=== PATIENT | female | born 1980 | race African-American/Black ===

== ENCOUNTER → 2019-04-22 | Outpatient (CLI) | payer OTHER ==
[~2019-04-22] MED LIST: ATIVAN1 MG PO; NOVOLOG100 UNIT/1 SQ; PROVENTIL IH; XANAX 0.5 MG0.5 M1 PO
== END ==
LOC: M.WC 10:00
DX: L03.314 Cellulitis of groin (principal); E10.36 Type 1 diabetes mellitus with diabetic cataract; E10.319 Type 1 diabetes mellitus with unspecified diabetic retinopathy without macular edema; I10 Essential (primary) hypertension; A49.01 Methicillin susceptible Staphylococcus aureus infection, unspecified site; J45.909 Unspecified asthma, uncomplicated; F41.9 Anxiety disorder, unspecified

== ENCOUNTER → 2019-04-29 | Outpatient (CLI) | payer OTHER | LOC: M.WC 04:48 | DX: L02.214 Cutaneous abscess of groin (principal); L03.314 Cellulitis of groin; E10.36 Type 1 diabetes mellitus with diabetic cataract; E10.319 Type 1 diabetes mellitus with unspecified diabetic retinopathy without macular edema; I10 Essential (primary) hypertension; J45.909 Unspecified asthma, uncomplicated; F17.200 Nicotine dependence, unspecified, uncomplicated; F41.9 Anxiety disorder, unspecified ==

== ENCOUNTER → 2019-05-03 | Outpatient (CLI) | payer OTHER | LOC: M.WC 02:05 | DX: L03.314 Cellulitis of groin (principal); L02.214 Cutaneous abscess of groin; E10.36 Type 1 diabetes mellitus with diabetic cataract; E10.319 Type 1 diabetes mellitus with unspecified diabetic retinopathy without macular edema; I10 Essential (primary) hypertension; J45.909 Unspecified asthma, uncomplicated; F17.200 Nicotine dependence, unspecified, uncomplicated ==

== ENCOUNTER → 2019-05-07 | Outpatient (CLI) | payer OTHER ==
[2019-05-07] VITALS (10 sets, daily range): BP systolic 116–172; BP diastolic 65–94
--- NOTE | 2019-05-07 16:57 | TEE ---
[place] [address] TRANSESOPHAGEAL ECHOCARDIOGRAM Name: ABHINAV CAVAZOS Room: [facility]#: [id number] Admission: 05/07/19 Attend Phys: Malachi Wade, Discharge: Date of : 82 Date of Service: 05/07/19 1656 Report #: [id number] THIS REPORT FOR: //name// APPROVED REPORT Study performed: 05/07/2019 14:18:15 EXAM: Transesophageal Echocardiogram Patient Location: Out-Patient Status: routine BSA: 1.95 HR: 110 bpm BP: 139/78 mmHg Rhythm: NSR Other Information Study Quality: Good Indications Rule out valvular vegetations Fever Echo Enhancing Agent Indication: Rule out Shunt Agent(s) / Amount(s) Used: Agitated Saline 20 cc Comments: 2 Bubble studies Procedure After obtaining informed consent, patient underwent transesophageal echo in the [employer]. Type of Sedation : Conscious Sedation Sedation was administered by Christine Hogan RN. Sedation start time: 1423 Case end Time: 1442. Sedation was achieved intravenously with: Versed (10) Fentanyl (75) Transesophageal probe was inserted and advanced into esophagus without difficulty by Malachi Morgan MD, FACC. Echo enhancement indication: R/O Septal defect. Echo enhancement agent administered: Agitated Saline The MIKE was performed without complications. Throughout the procedure, the blood pressure, pulse oximetry, cardiac rhythm, and rate were monitored. The patient tolerated the procedure without adverse effects. Recovery from conscious sedation was uneventful [place] [address] TRANSESOPHAGEAL ECHOCARDIOGRAM Name: ABHINAV CAVAZOS Room: [facility]#: [id number] Admission: 05/07/19 Attend Phys: Malachi Wade, Discharge: Date of : 82 Date of Service: 05/07/19 1656 Report #: [id number] Left Ventricle The left ventricle is normal size. There is normal LV segmental wall motion. There is normal left ventricular wall thickness. Left ventricular systolic function is normal. The left ventricular ejection fraction is within the normal range. LVEF is 55-60%. Right Ventricle The right ventricle is normal size. The right ventricular systolic function is normal. Atria Left atrium is mildly dilated. No thrombus is visualized in the left atrium or appendage. Interatrial septum is intact without evidence of ASD or PFO. The right atrium size is normal. Aortic Valve The aortic valve is normal in structure. No aortic regurgitation is present. There is no aortic valvular stenosis. Mitral Valve The mitral valve is normal in structure. There is no mitral valve regurgitation noted. No valvular vegetations noted No evidence of mitral valve stenosis. Tricuspid Valve The tricuspid valve is normal in structure. There is no tricuspid valve regurgitation noted. Pulmonic Valve The pulmonary valve is normal in structure. There is no pulmonic valvular regurgitation. Great Vessels The aortic root is normal in size. Pericardium There is no pericardial effusion. <Conclusion> LVEF is 55-60%. Left atrium is mildly dilated. No thrombus is visualized in the left atrium or appendage. Interatrial septum is intact without evidence [place] [address] TRANSESOPHAGEAL ECHOCARDIOGRAM Name: ABHINAV CAVAZOS Room: [facility].#: [id number] Admission: 05/07/19 Attend Phys: Malachi Wade, Discharge: Date of : 82 Date of Service: 05/07/191655 Report #: [id number] There is no mitral valve regurgitation noted. No valvular vegetations noted <ELECTRONICALLY SIGNED> By: Malachi Morgan MD, FACC 05/07/191655 55 55 Malachi Morgan MD, FACCharly /INF
== END | disposition home or self-care (01) ==
LOC: M.CL 13:24
DX: I72.8 Aneurysm of other specified arteries (principal); R06.09 Other forms of dyspnea; I05.8 Other rheumatic mitral valve diseases; Z88.2 Allergy status to sulfonamides; Z88.8 Allergy status to other drugs, medicaments and biological substances; Z79.4 Long term (current) use of insulin; Z79.899 Other long term (current) drug therapy; Z98.890 Other specified postprocedural states

== ENCOUNTER → 2019-05-07 | Outpatient (CLI) | payer OTHER | LOC: M.WC 10:00 | DX: L03.314 Cellulitis of groin (principal); E10.36 Type 1 diabetes mellitus with diabetic cataract; E10.319 Type 1 diabetes mellitus with unspecified diabetic retinopathy without macular edema; I10 Essential (primary) hypertension; J45.909 Unspecified asthma, uncomplicated; F17.200 Nicotine dependence, unspecified, uncomplicated; F41.9 Anxiety disorder, unspecified ==

== ENCOUNTER → 2019-05-10 | Outpatient (CLI) | payer OTHER | LOC: M.WC 05:09 | DX: L03.314 Cellulitis of groin (principal); E10.36 Type 1 diabetes mellitus with diabetic cataract; E10.319 Type 1 diabetes mellitus with unspecified diabetic retinopathy without macular edema; I10 Essential (primary) hypertension; J45.909 Unspecified asthma, uncomplicated; F17.200 Nicotine dependence, unspecified, uncomplicated ==

== ENCOUNTER → 2019-10-29 | Outpatient (CLI) | payer OTHER | LOC: M.RAD 10:54 | DX: R06.02 Shortness of breath (principal); R05 Cough ==

== ENCOUNTER → 2020-01-25 | Outpatient (CLI) | payer OTHER | LOC: M.MRI 01-20 16:30 | PROVIDERS: ATTEND Orthopaedic Surgery | DX: S63.591A Other specified sprain of right wrist, initial encounter (principal); M25.431 Effusion, right wrist; X58.XXXA Exposure to other specified factors, initial encounter; Y93.89 Activity, other specified; Y92.89 Other specified places as the place of occurrence of the external cause; Y99.8 Other external cause status ==

== ENCOUNTER → 2020-12-07 | Outpatient (CLI) | payer OTHER | LOC: M.WC 10:00 → M.RAD 10:10 | PROVIDERS: ATTEND Family Medicine | DX: E11.621 Type 2 diabetes mellitus with foot ulcer (principal); L97.512 Non-pressure chronic ulcer of other part of right foot with fat layer exposed; L84 Corns and callosities; E11.36 Type 2 diabetes mellitus with diabetic cataract; E11.319 Type 2 diabetes mellitus with unspecified diabetic retinopathy without macular edema; I10 Essential (primary) hypertension; J45.909 Unspecified asthma, uncomplicated; F17.200 Nicotine dependence, unspecified, uncomplicated; F41.9 Anxiety disorder, unspecified; Z98.49 Cataract extraction status, unspecified eye; Z90.710 Acquired absence of both cervix and uterus; Z79.4 Long term (current) use of insulin ==

== ENCOUNTER → 2020-12-14 | Outpatient (CLI) | payer OTHER | LOC: M.WC 09:57 | PROVIDERS: ATTEND Family Medicine | DX: E10.621 Type 1 diabetes mellitus with foot ulcer (principal); L97.512 Non-pressure chronic ulcer of other part of right foot with fat layer exposed; L84 Corns and callosities; J45.909 Unspecified asthma, uncomplicated; I10 Essential (primary) hypertension; E10.36 Type 1 diabetes mellitus with diabetic cataract; E10.319 Type 1 diabetes mellitus with unspecified diabetic retinopathy without macular edema; F41.9 Anxiety disorder, unspecified; F17.200 Nicotine dependence, unspecified, uncomplicated; Z86.14 Personal history of Methicillin resistant Staphylococcus aureus infection; Z90.722 Acquired absence of ovaries, bilateral; Z79.899 Other long term (current) drug therapy ==

== ENCOUNTER → 2020-12-21 | Outpatient (CLI) | payer OTHER | LOC: M.WC 10:00 | PROVIDERS: ATTEND Family Medicine | DX: E10.621 Type 1 diabetes mellitus with foot ulcer (principal); L97.512 Non-pressure chronic ulcer of other part of right foot with fat layer exposed; L84 Corns and callosities; J45.909 Unspecified asthma, uncomplicated; I10 Essential (primary) hypertension; E10.36 Type 1 diabetes mellitus with diabetic cataract; E10.319 Type 1 diabetes mellitus with unspecified diabetic retinopathy without macular edema; F41.9 Anxiety disorder, unspecified; F17.200 Nicotine dependence, unspecified, uncomplicated; Z86.14 Personal history of Methicillin resistant Staphylococcus aureus infection; Z90.722 Acquired absence of ovaries, bilateral ==

== ENCOUNTER → 2021-01-12 | Outpatient (CLI) | payer OTHER | LOC: M.WC 10:00 | PROVIDERS: ATTEND Family Medicine | DX: E10.621 Type 1 diabetes mellitus with foot ulcer (principal); L97.512 Non-pressure chronic ulcer of other part of right foot with fat layer exposed; L84 Corns and callosities; I10 Essential (primary) hypertension; E10.36 Type 1 diabetes mellitus with diabetic cataract; E10.319 Type 1 diabetes mellitus with unspecified diabetic retinopathy without macular edema; F41.9 Anxiety disorder, unspecified; F17.200 Nicotine dependence, unspecified, uncomplicated; J45.909 Unspecified asthma, uncomplicated; Z86.14 Personal history of Methicillin resistant Staphylococcus aureus infection; Z90.722 Acquired absence of ovaries, bilateral; Z79.899 Other long term (current) drug therapy ==

== ENCOUNTER 2021-07-09 10:54 | Emergency (ER) | payer OTHER ==
[~2021-07-09] VITALS: Ht 175.3 cm; Wt 86.2 kg
[2021-07-09] MEDS ORDERED: FLEXERIL PO (13:58)
[2021-07-09] MEDS ORDERED: NAPROSYN500 MG PO (13:58)
[2021-07-09] MEDS ORDERED: ZOFRAN ODT4 MG PO (14:02)
[2021-07-09 14:11] VITALS: BP 150/88
== END 2021-07-09 14:12 | disposition home or self-care (01) ==
LOC: M.ERS 10:54
DX: S16.1XXA Strain of muscle, fascia and tendon at neck level, initial encounter (principal); S09.90XA Unspecified injury of head, initial encounter; F41.9 Anxiety disorder, unspecified; E11.9 Type 2 diabetes mellitus without complications; J45.909 Unspecified asthma, uncomplicated; Z79.899 Other long term (current) drug therapy; Z88.2 Allergy status to sulfonamides; Z88.1 Allergy status to other antibiotic agents; V89.2XXA Person injured in unspecified motor-vehicle accident, traffic, initial encounter; Y93.89 Activity, other specified; Y92.89 Other specified places as the place of occurrence of the external cause; Y99.8 Other external cause status